=== PATIENT | female | born 1985 | race American Indian/Alaskan Native ===

== ENCOUNTER → 2020-04-15 10:17 | Outpatient (CLI) | payer OTHER, SELFPAY ==
[2020-05-16 20:14] LABS: Urea Breath Test >18YRS NEGATIVE
== END ==
PROVIDERS: Family Provider Physician Assistant; PCP Physician Assistant; Referring Provider Physician Assistant; Visit Provider Physician Assistant
DX: M79.2 Neuralgia and neuritis, unspecified (principal)
CPT/HCPCS: 83013